=== PATIENT | female | born 1995 | race American Indian/Alaskan Native ===

== ENCOUNTER 2019-02-05 14:01 | Emergency (ER) | payer SELFPAY | END 2019-02-05 14:20 | disposition left against medical advice (07) | LOC: ED 14:01 | DX: R05 Cough (principal); Z53.21 Procedure and treatment not carried out due to patient leaving prior to being seen by health care provider ==

== ENCOUNTER 2019-04-24 20:41 | Emergency (ER) | payer SELFPAY ==
[2019-04-24 23:52] LABS: Basophils % (Auto) 0.5 % (0.0-1.8); Eosinophils % (Auto) 0.3 % (0.0-4.3); Hematocrit 41.8 % (30.3-42.9); Hemoglobin 13.7 gm/dl (10.1-14.3); Lymphocytes # (Auto) 1.4 K/mm3 (1.2-5.4); Lymphocytes % (Auto) 16.6 % (13.4-35.0); Mean Corpuscular HGB Conc 33 % (30-34); Mean Corpuscular Volume 90 fl (79-97); Monocytes # (Auto) 0.5 K/mm3 (0.0-0.8); Monocytes % (Auto) 6.6 % (0.0-7.3); Platelet Count 259 K/mm3 (140-440); Red Blood Count 4.67 M/mm3 (3.65-5.03); Red Cell Distribution Width 13.1 % (13.2-15.2)
[2019-04-25 00:06] LABS: BUN/Creatinine Ratio 18; Blood Urea Nitrogen 11 mg/dL (7-17); Calcium 9.8 mg/dL (8.4-10.2); Hemolysis Index 18
[2019-04-25] MEDS ORDERED: SODIUM CHLORIDE 0.9% 1000 ML 1,000 ML IV ONE (00:12)
[2019-04-25] MEDS ORDERED: hydrOXYzine PAMOATE 25 MG CAP PO ONE (00:12)
[2019-04-25] MEDS ORDERED: ONDANSETRON 4 MG/2 ML INJ IV ONE (00:12)
--- NOTE | 2019-04-25 00:28 | Emergency Department Report ---
ED General Adult HPI - General Chief complaint: Abdominal Pain Stated complaint: POSS FOOD POISIONING Time Seen by Provider: 04/24/19 23:48 Source: patient Mode of arrival: Ambulatory Limitations: No Limitations - History of Present Illness Initial comments: Patient is a 24-year-old female presents with nausea and vomiting that began today. She states that she has had approximately 6-7 episodes of vomiting. She denies any diarrhea. She states she had a normal bowel movement yesterday. She denies any fever, urinary symptoms, hematic emesis. She denies any known sick contacts. She states that she ate Popeyes today and believes that this is the cause of her symptoms. 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 She denies any SI or HI. She states that she has had increased anxiety over the last few days. She states that she just feels overwhelmed but have no thoughts of wanting to hurt herself. She denies any allergies to medications. Her last menstrual cycle was 03/28/2019. - Related Data Previous Rx's Medication Instructions Recorded Last Taken Type Hyoscyamine Subl [Levsin Sl 0.125 0.125 mg SL Q6HR PRN #20 tab 02/04/15 Unknown Rx TAB] Ondansetron [Zofran ODT TAB] 8 mg PO Q8HR PRN #20 tab.rapdis 02/04/15 Unknown Rx Promethazine [Phenergan] 25 mg VT Q6HR PRN #12 supp.rect 02/04/15 Unknown Rx traMADoL [Ultram 50 MG tab] 50 - 100 mg PO Q8HR PRN #20 tablet 02/04/15 Unknown Rx Ondansetron [Zofran Odt] 4 mg PO Q8HR PRN #14 tab.rapdis 04/25/19 Unknown Rx Allergies Allergy/AdvReac Type Severity Reaction Status Date / Time No Known Allergies Allergy Unverified 12/09/14 07:34 ED Review of Systems ROS: Stated complaint: POSS FOOD POISIONING Other details as noted in HPI Comment: All other systems reviewed and negative ED Past Medical Hx - Past Medical History Previous Medical History?: Yes Hx Psychiatric Treatment: Yes (DEPRESSION) Additional medical history: ovarian cyst - Surgical History Past Surgical History?: No - Social History Smoking Status: Current Every Day Smoker Substance Use Type: None - Medications Home Medications: Home Medications Medication Instructions Recorded Confirmed Last Taken Type Hyoscyamine Subl [Levsin Sl 0.125 0.125 mg SL Q6HR PRN #20 tab 02/04/15 Unknown Rx TAB] Ondansetron [Zofran ODT TAB] 8 mg PO Q8HR PRN #20 tab.rapdis 02/04/15 Unknown Rx Promethazine [Phenergan] 25 mg [place] Q6HR PRN #12 supp.rect 02/04/15 Unknown Rx traMADoL [Ultram 50 MG tab] 50 - 100 mg PO Q8HR PRN #20 tablet 02/04/15 Unknown Rx Ondansetron [Zofran Odt] 4 mg PO Q8HR PRN #14 tab.rapdis 04/25/19 Unknown Rx ED Physical Exam - General Limitations: No Limitations General appearance: alert, anxious - Head Head exam: Present: atraumatic, normocephalic - ENT ENT exam: Present: mucous membranes moist - Respiratory Respiratory exam: Present: normal lung sounds bilaterally. Absent: respiratory distress, wheezes, rales, rhonchi, stridor, chest wall tenderness, accessory muscle use, decreased breath sounds, prolonged expiratory - Cardiovascular Cardiovascular Exam: Present: regular rate, normal rhythm, normal heart sounds. Absent: systolic murmur, diastolic murmur, rubs, gallop - GI/Abdominal GI/Abdominal exam: Present: soft, normal bowel sounds. Absent: distended, tenderness, guarding, rebound, rigid - Neurological Exam Neurological exam: Present: alert, oriented X3 - Psychiatric Psychiatric exam: Present: anxious. Absent: homicidal ideation, suicidal ideation - Skin Skin exam: Present: warm, dry, intact ED Course Vital Signs 04/24/19 20:47 Temperature 98.5 F Pulse Rate 83 Respiratory 20 Rate Blood Pressure 148/92 O2 Sat by Pulse 100 Oximetry ED Medical Decision Making - Lab Data Result diagrams: 04/24/19 23:00 04/24/19 23:00 Lab Results 04/24/19 04/24/19 04/24/19 Range/Units 23:00 23:00 23:00 WBC 8.2 (4.5-11.0) K/mm3 RBC 4.67 (3.65-5.03) M/mm3 Hgb 13.7 (10.1-14.3) gm/dl Hct 41.8 (30.3-42.9) % MCV 90 (79-97) fl MCH 29 (28-32) pg MCHC 33 (30-34) % RDW 13.1 L (13.2-15.2) % Plt Count 259 (140-440) K/mm3 Lymph % (Auto) 16.6 (13.4-35.0) % Butts % (Auto) 6.6 (0.0-7.3) % Eos % (Auto) 0.3 (0.0-4.3) % Baso % (Auto) 0.5 (0.0-1.8) % Lymph # 1.4 (1.2-5.4) K/mm3 Butts # 0.5 (0.0-0.8) K/mm3 Eos # 0.0 (0.0-0.4) K/mm3 Baso # 0.0 (0.0-0.1) K/mm3 Seg Neutrophils % 76.0 H (40.0-70.0) % Seg Neutrophils # 6.3 (1.8-7.7) K/mm3 Sodium 139 (137-145) mmol/L Potassium 3.9 (3.6-5.0) mmol/L Chloride 100.2 (98-107) mmol/L Carbon Dioxide 25 (22-30) mmol/L Anion Gap 18 mmol/L BUN 11 (7-17) mg/dL Creatinine 0.6 L (0.7-1.2) mg/dL Estimated GFR > 60 ml/min BUN/Creatinine Ratio 18 % Glucose 91 (65-100) mg/dL Calcium 9.8 (8.4-10.2) mg/dL Total Bilirubin (0.1-1.2) mg/dL Direct Bilirubin (0-0.2) mg/dL Indirect Bilirubin mg/dL AST (5-40) units/L ALT (7-56) units/L Alkaline Phosphatase (35-129) units/L Total Protein (6.3-8.2) g/dL Albumin (3.9-5) g/dL Albumin/Globulin Ratio % Lipase (13-60) units/L HCG, Qual Negative (Negative) Urine Color (Yellow) Urine Turbidity (Clear) Urine pH (5.0-7.0) Ur Specific [place] (1.003-1.030) Urine Protein (Negative) mg/dL Urine Glucose (UA) (Negative) mg/dL Urine Ketones (Negative) mg/dL Urine Blood (Negative) Urine Nitrite (Negative) Urine Bilirubin (Negative) Urine Urobilinogen (<2.0) mg/dL Ur Leukocyte Esterase (Negative) Urine WBC (Auto) (0.0-6.0) /HPF Urine RBC (Auto) (0.0-6.0) /HPF U Epithel Cells (Auto) (0-13.0) /HPF Urine Mucus /HPF 04/24/19 04/25/19 Range/Units 23:54 Unknown WBC (4.5-11.0) K/mm3 RBC (3.65-5.03) M/mm3 Hgb (10.1-14.3) gm/dl Hct (30.3-42.9) % MCV (79-97) fl MCH (28-32) pg MCHC (30-34) % RDW (13.2-15.2) % Plt Count (140-440) K/mm3 Lymph % (Auto) (13.4-35.0) % Butts % (Auto) (0.0-7.3) % Eos % (Auto) (0.0-4.3) % Baso % (Auto) (0.0-1.8) % Lymph # (1.2-5.4) K/mm3 Butts # (0.0-0.8) K/mm3 Eos # (0.0-0.4) K/mm3 Baso # (0.0-0.1) K/mm3 Seg Neutrophils % (40.0-70.0) % Seg Neutrophils # (1.8-7.7) K/mm3 Sodium (137-145) mmol/L Potassium (3.6-5.0) mmol/L Chloride (98-107) mmol/L Carbon Dioxide (22-30) mmol/L Anion Gap mmol/L BUN (7-17) mg/dL Creatinine (0.7-1.2) mg/dL Estimated GFR ml/min BUN/Creatinine Ratio % Glucose (65-100) mg/dL Calcium (8.4-10.2) mg/dL Total Bilirubin 0.40 (0.1-1.2) mg/dL Direct Bilirubin < 0.2 (0-0.2) mg/dL Indirect Bilirubin 0.2 mg/dL AST 17 (5-40) units/L ALT 12 (7-56) units/L Alkaline Phosphatase 54 (35-129) units/L Total Protein 8.0 (6.3-8.2) g/dL Albumin 4.9 (3.9-5) g/dL Albumin/Globulin Ratio 1.6 % Lipase 15 (13-60) units/L HCG, Qual (Negative) Urine Color Yellow (Yellow) Urine Turbidity Turbid (Clear) Urine pH 8.0 H (5.0-7.0) Ur Specific [place] 1.023 (1.003-1.030) Urine Protein 30 mg/dl (Negative) mg/dL Urine Glucose (UA) Neg (Negative) mg/dL Urine Ketones 20 (Negative) mg/dL Urine Blood Neg (Negative) Urine Nitrite Neg (Negative) Urine Bilirubin Neg (Negative) Urine Urobilinogen < 2.0 (<2.0) mg/dL Ur Leukocyte Esterase Neg (Negative) Urine WBC (Auto) 4.0 (0.0-6.0) /HPF Urine RBC (Auto) 5.0 (0.0-6.0) /HPF U Epithel Cells (Auto) 14.0 H (0-13.0) /HPF Urine Mucus 3+ /HPF - Medical Decision Making Patient is a 24-year-old female presents with nausea and vomiting that began today. She states that she has had approximately 6-7 episodes of vomiting. She denies any diarrhea. She states she had a normal bowel movement yesterday. She denies any fever, urinary symptoms, hematic emesis. She denies any known sick contacts. She states that she ate Popeyes today and believes that this is the cause of her symptoms. 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 She denies any SI or HI. She states that she has had increased anxiety over the last few days. She states that she just feels overwhelmed but have no thoughts of wanting to hurt herself. She denies any allergies to medications. Her last menstrual cycle was 03/28/2019. VSS. Labs are stable. hCG is negative. UA without UTI. No abdominal tenderness to palpation, no guarding, no rebound, no rigidity, normal bowel sounds, patient appears slightly anxious. Patient given IV fluids, Zofran, hydroxyzine. Patient was feeling much better. Patient was able to tolerate p.o. intake without any difficulty. Patient will be referred to the ED [facility] for her anxiety. Patient given Zofran prescription to take as needed for nausea and vomiting. advised pt to please take medication as prescribed as needed. Please follow-up with a primary care doctor. Please follow-up with the [facility]. Increase your fluid intake over the next several days. Eat a bland diet. Return to the emergency room immediately for any new or worsening symptoms. Return to the emergency room or call 911 immediately if you began feeling thoughts of wanting to hurt yourself or others. Please practice meditation and coping skills for anxiety and watch videos on how to use these coping mechanisms when you begin to feel anxious. - Differential Diagnosis Gastroenteritis, gastritis, food poisoning, viral syndrome, UTI, dehydratio Critical care attestation.: If time is entered above; I have spent that time in minutes in the direct care of this critically ill patient, excluding procedure time. ED Disposition Clinical Impression: Anxiety Nausea and vomiting Qualifiers: Vomiting type: unspecified Vomiting Intractability: non-intractable Qualified Code(s): R11.2 - Nausea with vomiting, unspecified Disposition: DC-01 TO HOME OR SELFCARE Is pt being admited?: No Does the pt Need Aspirin: No Condition: Stable Instructions: Acute Nausea and Vomiting (ED), Anxiety (ED) Additional Instructions: Please take medication as prescribed as needed. Please follow-up with a primary care doctor. Please follow-up with the [facility]. Increase your fluid intake over the next several days. Eat a bland diet. Return to the emergency room immediately for any new or worsening symptoms. Return to the emergency room or call 911 immediately if you began feeling thoughts of wanting to hurt yourself or others. Please practice meditation and coping skills for anxiety and watch videos on how to use these coping mechanisms when you begin to feel anxious. Prescriptions: Ondansetron [Zofran Odt] 4 mg PO Q8HR PRN #14 tab.rapdis PRN Reason: Nausea And Vomiting Referrals: MISSY TEMPLETON MD [Staff Physician] - 2-3 Days [facility] [Outside] - 2-3 Days [facility] [Outside] - 2-3 Days [facility] [Outside] - 2-3 Days Time of Disposition: 01:45 Print Language: ARGENTINE
[2019-04-25 00:55] LABS: Alanine Aminotransferase 12 units/L (7-56); Albumin 4.9 g/dL (3.9-5)
[2019-04-25 01:04] LABS: Bilirubin,Direct < 0.2 mg/dL (0-0.2)
[2019-04-25 01:25] LABS: Bilirubin,Urine NEG (Negative); Blood,Urine NEG (Negative); Color,Urine Yellow (Yellow); Mucus,Urine 3+ /HPF; Urobilinogen,Urine < 2.0 mg/dL (<2.0)
[2019-04-25 04:51] VITALS: BP 124/80
== END 2019-04-25 01:57 | disposition home or self-care (01) ==
LOC: ED 20:41
DX: F41.9 Anxiety disorder, unspecified (principal); F17.200 Nicotine dependence, unspecified, uncomplicated; F33.9 Major depressive disorder, recurrent, unspecified; Z79.899 Other long term (current) drug therapy
CPT/HCPCS: 36415; 80048; 80076; 81001; 83690; 84703; 85025; 96361; 96374; 99283; J2405; J7030; Q0177

== ENCOUNTER 2019-10-06 15:10 | Emergency (ER) | payer SELFPAY ==
--- NOTE | 2019-10-06 15:53 | Event Note ---
ED Screening Note Date of service: 10/06/19 Time: 15:51 ED Screening Note: severe abdominal pain x 2 days. flare ups of pain over the past many years. She reports the only thing that works is IV fluids and morphine. She was seen at [facility] yesterday and discharged. This initial assessment/diagnostic orders/clinical plan/treatment(s) is/are subject to change based on patients health status, clinical progression and re- assessment by fellow clinical providers in the ED. Further treatment and workup at subsequent clinical providers discretion. Patient/guardian urged not to elope from the ED as their condition may be serious if not clinically assessed and managed. Initial orders include: cbc, cmp, lipase, urinalysis, urine preg
[2019-10-06] MEDS ORDERED: SODIUM CHLORIDE 0.9% 1000 ML 1,000 ML IV ONE (16:36)
[2019-10-06] MEDS ORDERED: MORPHINE 4 MG/1 ML INJ IV ONE (16:36)
[2019-10-06] MEDS ORDERED: ONDANSETRON 4 MG/2 ML INJ IV ONE (16:36)
--- NOTE | 2019-10-06 16:46 | Emergency Department Report ---
ED Abdominal Pain HPI - General Chief Complaint: Abdominal Pain Stated Complaint: N/V Time Seen by Provider: 10/06/19 16:36 Source: patient Mode of arrival: Ambulatory Limitations: No Limitations - History of Present Illness Initial Comments: 24-year-old -L[place] female patient presents with complaints of lower abdominal pain and nausea/vomiting x 3 days. Patient states that she has had the same recurrent pain for the past 5 years and that it occurs with her menstrual cycle. Patient states her menstrual cycle started 3 days ago. She also reports that she was seen at [facility] yesterday and denies any abnormal findings in her work-up. She rates her current pain as a 10/10 in severity and denies any hematemesis/coffee-ground emesis, diarrhea/constipation, melena/hematochezia, cough, shortness of breath, fever/chills/sweats, dy suria/hematuria/urinary frequency, or vaginal discharge/dyspareunia. Patient states that this pain feels the same that it always feels when it occurs. 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 She states during these episodes, morphine and fluids usually works well for her. - Related Data Previous Rx's Medication Instructions Recorded Last Taken Type Hyoscyamine Subl [Levsin Sl 0.125 0.125 mg SL Q6HR PRN #20 tab 02/04/15 Unknown Rx TAB] Ondansetron [Zofran ODT TAB] 8 mg PO Q8HR PRN #20 tab.rapdis 02/04/15 Unknown Rx Promethazine [Phenergan] 25 mg MO Q6HR PRN #12 supp.rect 02/04/15 Unknown Rx traMADoL [Ultram 50 MG tab] 50 - 100 mg PO Q8HR PRN #20 tablet 02/04/15 Unknown Rx Ondansetron [Zofran Odt] 4 mg PO Q8HR PRN #14 tab.rapdis 04/25/19 Unknown Rx Dicyclomine [Bentyl] 20 mg PO QID PRN #20 bottle 10/06/19 Unknown Rx Promethazine HCl [Promethazine TAB] 12.5 - 25 mg PO [id number] PRN #20 tab 10/06/19 Unknown Rx Allergies Allergy/AdvReac Type Severity Reaction Status Date / Time No Known Allergies Allergy Unverified 12/09/14 07:34 ED Review of Systems ROS: Stated complaint: N/V Other details as noted in HPI Constitutional: denies: chills, diaphoresis, fever, malaise, weakness Respiratory: denies: cough Cardiovascular: denies: chest pain Gastrointestinal: abdominal pain, nausea, vomiting. denies: diarrhea, constipation, hematemesis, melena, hematochezia Genitourinary: denies: urgency, dysuria, frequency, hematuria, discharge, abnormal menses Musculoskeletal: denies: back pain, arthralgia Skin: denies: rash, change in color Neurological: denies: headache Hematological/Lymphatic: denies: swollen glands ED Past Medical Hx - Past Medical History Previous Medical History?: Yes Hx Psychiatric Treatment: Yes (DEPRESSION) Additional medical history: ovarian cyst - Surgical History Additional Surgical History: tumor removal - Social History Smoking Status: Current Every Day Smoker Substance Use Type: Marijuana - Medications Home Medications: Home Medications Medication Instructions Recorded Confirmed Last Taken Type Hyoscyamine Subl [Levsin Sl 0.125 0.125 mg SL Q6HR PRN #20 tab 02/04/15 Unknown Rx TAB] Ondansetron [Zofran ODT TAB] 8 mg PO Q8HR PRN #20 tab.rapdis 02/04/15 Unknown Rx Promethazine [Phenergan] 25 mg MO Q6HR PRN #12 supp.rect 02/04/15 Unknown Rx traMADoL [Ultram 50 MG tab] 50 - 100 mg PO Q8HR PRN #20 tablet 02/04/15 Unknown Rx Ondansetron [Zofran Odt] 4 mg PO Q8HR PRN #14 tab.rapdis 04/25/19 Unknown Rx Dicyclomine [Bentyl] 20 mg PO QID PRN #20 bottle 10/06/19 Unknown Rx Promethazine HCl [Promethazine TAB] 12.5 - 25 mg PO [id number] PRN #20 tab 10/06/19 Unknown Rx ED Physical Exam - General Limitations: No Limitations General appearance: alert, in no apparent distress - Head Head exam: Present: atraumatic, normocephalic - Eye Eye exam: Present: normal appearance - Neck Neck exam: Present: normal inspection - Respiratory Respiratory exam: Present: normal lung sounds bilaterally. Absent: respiratory distress - Cardiovascular Cardiovascular Exam: Present: regular rate, normal rhythm. Absent: systolic murmur, diastolic murmur, rubs, gallop - GI/Abdominal GI/Abdominal exam: Present: soft, tenderness (Generalized suprapubic). Absent: distended, rebound, rigid - Extremities Exam Extremities exam: Present: full ROM - Back Exam Back exam: Absent: CVA tenderness (R), CVA tenderness (L) - Neurological Exam Neurological exam: Present: alert, oriented X3 - Psychiatric Psychiatric exam: Present: normal affect, normal mood - Skin Skin exam: Present: warm, dry, intact, normal color. Absent: rash, cyanosis, diaphoretic, erythema ED Course Vital Signs 10/06/19 10/06/19 15:19 17:47 Temperature 97.6 F 98 F Pulse Rate 91 H 78 Respiratory 19 16 Rate Blood Pressure 140/74 Blood Pressure 136/70 [Left] O2 Sat by Pulse 99 Oximetry ED Medical Decision Making - Lab Data Result diagrams: 10/06/19 17:30 10/06/19 17:30 Lab Results 10/06/19 10/06/19 10/06/19 Range/Units 16:38 17:30 17:30 WBC 8.5 (4.5-11.0) K/mm3 RBC 4.38 (3.65-5.03) M/mm3 Hgb 13.2 (10.1-14.3) gm/dl Hct 39.2 (30.3-42.9) % MCV 90 (79-97) fl MCH 30 (28-32) pg MCHC 34 (30-34) % RDW 12.3 L (13.2-15.2) % Plt Count 171 (140-440) K/mm3 Lymph % (Auto) Marketing Services Coordinator Bureau % (Auto) Marketing Services Coordinator Eos % (Auto) Marketing Services Coordinator Baso % (Auto) Marketing Services Coordinator Lymph # Marketing Services Coordinator Bureau # Marketing Services Coordinator Eos # Marketing Services Coordinator Baso # Marketing Services Coordinator Seg Neutrophils % Marketing Services Coordinator Seg Neutrophils # Marketing Services Coordinator Sodium 138 (137-145) mmol/L Potassium 3.6 (3.6-5.0) mmol/L Chloride 100.5 (98-107) mmol/L Carbon Dioxide 18 L (22-30) mmol/L Anion Gap 23 mmol/L BUN 19 H (7-17) mg/dL Creatinine 0.6 (0.6-1.2) mg/dL Estimated GFR > 60 ml/min BUN/Creatinine Ratio 32 % Glucose 91 (65-100) mg/dL Calcium 9.3 (8.4-10.2) mg/dL Total Bilirubin 1.40 H (0.1-1.2) mg/dL AST 25 (5-40) units/L ALT 21 (7-56) units/L Alkaline Phosphatase 57 (35-129) units/L Total Protein 7.9 (6.3-8.2) g/dL Albumin 4.7 (3.9-5) g/dL Albumin/Globulin Ratio 1.5 % Lipase 18 (13-60) units/L HCG, Qual (Negative) Urine Color Yellow (Yellow) Urine Turbidity Slightly-cloudy (Clear) Urine pH 5.0 (5.0-7.0) Ur Specific [place] 1.036 H (1.003-1.030) Urine Protein 100 mg/dl (Negative) mg/dL Urine Glucose (UA) Neg (Negative) mg/dL Urine Ketones 80 (Negative) mg/dL Urine Blood Lg (Negative) Urine Nitrite Neg (Negative) Urine Bilirubin Neg (Negative) Urine Urobilinogen < 2.0 (<2.0) mg/dL Ur Leukocyte Esterase Neg (Negative) Urine WBC (Auto) 7.0 H (0.0-6.0) /HPF Urine RBC (Auto) > 182.0 (0.0-6.0) /HPF U Epithel Cells (Auto) 7.0 (0-13.0) /HPF Urine Mucus 3+ /HPF Urine Yeast (Budding) Few /HPF 10/05/ Range/Units 17:30 WBC (4.5-11.0) K/mm3 RBC (3.65-5.03) M/mm3 Hgb (10.1-14.3) gm/dl Hct (30.3-42.9) % MCV (79-97) fl MCH (28-32) pg MCHC (30-34) % RDW (13.2-15.2) % Plt Count (140-440) K/mm3 Lymph % (Auto) Bureau % (Auto) Eos % (Auto) Baso % (Auto) Lymph # Bureau # Eos # Baso # Seg Neutrophils % Seg Neutrophils # Sodium (137-145) mmol/L Potassium (3.6-5.0) mmol/L Chloride (98-107) mmol/L Carbon Dioxide (22-30) mmol/L Anion Gap mmol/L BUN (7-17) mg/dL Creatinine (0.6-1.2) mg/dL Estimated GFR ml/min BUN/Creatinine Ratio % Glucose (65-100) mg/dL Calcium (8.4-10.2) mg/dL Total Bilirubin (0.1-1.2) mg/dL AST (5-40) units/L ALT (7-56) units/L Alkaline Phosphatase (35-129) units/L Total Protein (6.3-8.2) g/dL Albumin (3.9-5) g/dL Albumin/Globulin Ratio % Lipase (13-60) units/L HCG, Qual Negative (Negative) Urine Color (Yellow) Urine Turbidity (Clear) Urine pH (5.0-7.0) Ur Specific [place] (1.003-1.030) Urine Protein (Negative) mg/dL Urine Glucose (UA) (Negative) mg/dL Urine Ketones (Negative) mg/dL Urine Blood (Negative) Urine Nitrite (Negative) Urine Bilirubin (Negative) Urine Urobilinogen (<2.0) mg/dL Ur Leukocyte Esterase (Negative) Urine WBC (Auto) (0.0-6.0) /HPF Urine RBC (Auto) (0.0-6.0) /HPF U Epithel Cells (Auto) (0-13.0) /HPF Urine Mucus /HPF Urine Yeast (Budding) /HPF - Medical Decision Making 24-year-old -[place] female patient presents with complaints of lower abdominal pain and nausea/vomiting x 3 days. Patient states that she has had the same recurrent pain for the past 5 years and that it occurs with her menstrual cycle. Patient states her menstrual cycle started 3 days ago. She also reports that she was seen at [facility] yesterday and denies any abnormal findings in her work-up. Patient states Tylenol at home is not working for her pain. CBC, CMP, and lipase, are without significant abnormalities. UA shows 7 WBCs and 7 epithelial cells-patient states this is chronic and denies any urinary symptoms. Patient given Zofran, Reglan/Benadryl, and morphine, however her pain persisted. After Toradol, patient states her pain is completely resolved. Given the duration of patient's symptoms over 5 years and recurrence around the time of her menstrual cycle, suspect patient has endometriosis. She states she has an appointment with her [employer]EEPING MAINTENANCE WORKER tomorrow for further evaluation of this chronic recurrent pain. She is tolerating fluids and food orally currently. Her vitals are normal, she is well-appearing, and stable for discharge home. Strict return precautions were discussed in detail with patient who verbalizes understanding. - Differential Diagnosis UTI, PID, appendicitis, endometriosis Critical care attestation.: If time is entered above; I have spent that time in minutes in the direct care of this critically ill patient, excluding procedure time. ED Disposition Clinical Impression: Chronic pelvic pain in female Disposition: DC- TO HOME OR SELFCARE Is pt being admited?: No Condition: Stable Instructions: Endometriosis (ED), Chronic Pelvic Pain in Women (ED) Additional Instructions: Please follow-up with your GROUNDSKEEPING MAINTENANCE WORKER as scheduled on 10/07/2019 Prescriptions: Promethazine HCl [Promethazine TAB] 12.5 - 25 mg PO [id number] PRN #20 tab PRN Reason: Nausea Dicyclomine [Bentyl] 20 mg PO QID PRN #20 bottle PRN Reason: cramping Referrals: PRIMARY CARE, [Primary Care Provider] - 3-5 Days Forms: Work/School Release Form(ED)
[2019-10-06 17:01] LABS: Bilirubin,Urine NEG (Negative); Blood,Urine LG (Negative); Color,Urine Yellow (Yellow); Mucus,Urine 3+ /HPF; Urobilinogen,Urine < 2.0 mg/dL (<2.0)
[2019-10-06 17:04] LABS: RBC,Urine > 182.0 /HPF (0.0-6.0)
[2019-10-06] MEDS ORDERED: METOCLOPRAMIDE 10 MG/2 ML INJ IV ONE (17:22)
[2019-10-06] MEDS ORDERED: diphenhydrAMINE 50 MG/ML VIAL IV ONE (17:22)
[2019-10-06 17:54] VITALS: BP 136/70
[2019-10-06 18:17] LABS: Hematocrit 39.2 % (30.3-42.9); Hemoglobin 13.2 gm/dl (10.1-14.3); Mean Corpuscular HGB Conc 34 % (30-34); Mean Corpuscular Volume 90 fl (79-97); Red Blood Count 4.38 M/mm3 (3.65-5.03); Red Cell Distribution Width 12.3 % (13.2-15.2)
[2019-10-06 18:20] LABS: Platelet Count 171 K/mm3 (140-440)
[2019-10-06] MEDS ORDERED: KETOROLAC 30 MG/1 ML INJ IV ONE (18:20)
[2019-10-06 18:24] LABS: Alanine Aminotransferase 21 units/L (7-56); Albumin 4.7 g/dL (3.9-5); Blood Urea Nitrogen 19 mg/dL (7-17); Calcium 9.3 mg/dL (8.4-10.2); Hemolysis Index 59
[2019-10-06 18:42] LABS: BUN/Creatinine Ratio 32
== END 2019-10-06 19:29 | disposition home or self-care (01) ==
LOC: ED 15:10
DX: R10.2 Pelvic and perineal pain (principal); G89.29 Other chronic pain; R11.2 Nausea with vomiting, unspecified; F32.9 Major depressive disorder, single episode, unspecified; F12.90 Cannabis use, unspecified, uncomplicated; F17.200 Nicotine dependence, unspecified, uncomplicated; Z79.899 Other long term (current) drug therapy; Z98.890 Other specified postprocedural states
CPT/HCPCS: 36415; 80053; 81001; 83690; 84703; 85025; 96361; 96374; 96375; 99283; J1200; J1885; J2270; J2405; J2765; J7030

== ENCOUNTER 2020-01-31 00:44 | Emergency (ER) | payer SELFPAY ==
[2020-01-31 01:09] VITALS: BP 140/88
[2020-01-31] MEDS ORDERED: ONDANSETRON 4 MG ODT TAB PO ONE (01:10)
[2020-01-31] MEDS ORDERED: ONDANSETRON 4 MG ODT TAB ONE (01:11)
[2020-01-31 02:07] LABS: Basophils # (Auto) 0.1 K/mm3 (0.0-0.1); Basophils % (Auto) 0.5 % (0.0-1.8); Eosinophils % (Auto) 0.2 % (0.0-4.3); Hematocrit 42.7 % (30.3-42.9); Hemoglobin 14.2 gm/dl (10.1-14.3); Lymphocytes # (Auto) 1.7 K/mm3 (1.2-5.4); Lymphocytes % (Auto) 17.2 % (13.4-35.0); Mean Corpuscular HGB Conc 33 % (30-34); Mean Corpuscular Volume 92 fl (79-97); Monocytes # (Auto) 0.9 K/mm3 (0.0-0.8); Monocytes % (Auto) 8.7 % (0.0-7.3); Red Blood Count 4.62 M/mm3 (3.65-5.03); Red Cell Distribution Width 13.4 % (13.2-15.2)
[2020-01-31 02:20] LABS: Platelet Count 147 K/mm3 (140-440)
[2020-01-31 02:40] LABS: Alanine Aminotransferase 11 units/L (7-56); Albumin 4.1 g/dL (3.9-5); Blood Urea Nitrogen 8 mg/dL (7-17); Calcium 9.4 mg/dL (8.4-10.2); Hemolysis Index 135
--- NOTE | 2020-01-31 02:48 | XRay Report ---
CHEST 1 VIEW INDICATION: Chest Pain. COMPARISON: None FINDINGS: SUPPORT DEVICES: None. HEART: Within normal limits. LUNGS/PLEURA: No acute air space or interstitial disease. ADDITIONAL FINDINGS: None. IMPRESSION: 1. No acute findings. Signer Name: Jalen Nunez MD Signed: 01/31/2020 2:44 AM Workstation Name: [id number]
[2020-01-31 03:03] LABS: BUN/Creatinine Ratio 13
[2020-01-31 04:18] LABS: Bacteria,Urine 2+ /HPF (Negative); Bilirubin,Urine NEG (Negative); Blood,Urine NEG (Negative); Color,Urine Yellow (Yellow); Mucus,Urine 3+ /HPF; Urobilinogen,Urine < 2.0 mg/dL (<2.0)
== END 2020-01-31 05:51 | disposition left against medical advice (07) ==
LOC: ED 00:44
DX: R10.9 Unspecified abdominal pain (principal); Z53.21 Procedure and treatment not carried out due to patient leaving prior to being seen by health care provider
CPT/HCPCS: 36415; 71045; 80053; 81001; 84703; 85025; 87086; 93005; Q0162

== ENCOUNTER 2021-11-01 23:42 | Emergency (ER) | payer SELFPAY ==
[2021-11-02 00:08] VITALS: BP 153/92
--- NOTE | 2021-11-02 11:47 | Electrocardiograph Report ---
[facility] Test Date: 2021-11-01 Test Time: 23:53:16 Pat Name: SPENCER SWIFT Department: Room: Gender: F Cylinder Filler: YANIRA : 1995 Requested By: JOSE ENRIQUE ESQUIVEL Order Number: [id number] Reading MD: Juice Zarate Measurements Intervals [place] Rate: 96 P: -5 [place]: 177 QRS: 56 QRSD: 102 T: 54 QT: 370 QTc: 468 Interpretive Statements Sinus rhythm Probable left atrial enlargement No previous ECG available for comparison Electronically Signed On 11-02-2021 11:47:31 EDT by Juice Zarate
== END 2021-11-02 04:30 | disposition left against medical advice (07) ==
LOC: ED 23:42
DX: I10 Essential (primary) hypertension (principal); Z53.21 Procedure and treatment not carried out due to patient leaving prior to being seen by health care provider
CPT/HCPCS: 93005